=== PATIENT | male | born 1995 | race Caucasian/White ===

== ENCOUNTER 2020-11-06 08:02 | Emergency (ER) | payer OTHER ==
[~2020-11-06] VITALS: Ht 190.5 cm; Wt 140.2 kg
[2020-11-06 08:07] VITALS: BP 149/85
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
[2020-11-06] MEDS ORDERED: TETANUS,DIPTH,PERTUSS P/F (BOOSTRIX) 0.5 ML VIAL IM ONE (08:30)
== END 2020-11-06 08:37 | disposition home or self-care (01) ==
LOC: EDUNIT# 08:02 → ER FS 08:04
DX: S01.01XA Laceration without foreign body of scalp, initial encounter (principal); S09.90XA Unspecified injury of head, initial encounter; Z23 Encounter for immunization; V00.831A Fall from motorized mobility scooter, initial encounter
CPT/HCPCS: 90715; 99284